=== PATIENT | female | born 1985 | race Asian ===

== ENCOUNTER 2018-01-05 10:42 | Emergency (ER) | payer OTHER ==
[~2018-01-05] VITALS: Ht 160 cm; Wt 49.1 kg
[2018-01-05 11:22] VITALS: BP 128/77
== END 2018-01-05 11:53 | disposition home or self-care (01) ==
LOC: EMS 10:44
DX: S01.531A Puncture wound without foreign body of lip, initial encounter (principal); S01.431A Puncture wound without foreign body of right cheek and temporomandibular area, initial encounter; W54.0XXA Bitten by dog, initial encounter; Y93.89 Activity, other specified; Y92.89 Other specified places as the place of occurrence of the external cause; Y99.8 Other external cause status
CPT/HCPCS: 99283